=== PATIENT | female | born 1965 | race Caucasian/White ===

== ENCOUNTER 2016-10-24 14:03 | Inpatient (IN) | payer BC ==
[2016-10-24] MEDS ORDERED: IPRATROPIUM/ALBUTEROL 0.5-2.5 MG/3 ML AMPUL NEB ONE ×2 (14:13→15:07)
[2016-10-24] MEDS ORDERED: METHYLPREDNISOLONE INJ 125 MG/2 ML SDV IV ONE (14:13)
--- NOTE | 2016-10-24 14:13 | ER Document Report ---
ED Medical Screen (RME) - General Stated Complaint: DIFFICULTY BREATHING Notes: patient is a 51 year old female with PMH COPD with difficulty breathing that started yesterday. nebulizer treatments- hour ago albuterol does not wear 02 at home. dyspnic, able to talk in sentences but easily SOB tobacco use I have greeted and performed a rapid initial assessment of this patient. A comprehensive ED assessment and evaluation of the patient, analysis of test results and completion of the medical decision making process will be conducted by additional ED providers. - Related Data Allergies/Adverse Reactions: Penicillins Allergy (Intermediate, Verified 11/08/13 00:18) aspirin [Aspirin] Allergy (Verified 11/07/13 19:14) codeine [Codeine] Allergy (Verified 11/07/13 19:14) Past Medical History Pulmonary Medical History: Reports: Hx Asthma Psychiatric Medical History: Denies: Hx Depression - Immunizations Hx Diphtheria, Pertussis, Tetanus Vaccination: No Physical Exam - Vital signs Vitals: Temp Pulse Resp BP Pulse Ox 98.1 F 91 26 H 182/95 H 92 10/24/16 14:10/24/16 14:10/24/16 14:10/24/16 14:10/24/16 14:09 Course - Vital Signs Vital signs: Temp Pulse Resp BP Pulse Ox 98.1 F 91 26 H 182/95 H 92 10/24/16 14:10/24/16 14:10/24/16 14:10/24/16 14:10/24/16 14:09
[2016-10-24] MEDS: ALBUTEROL SULFATE 0.083% NEB 2.5 MG/3 ML AMPUL NEB SCH ×2 (14:46→14:56)
--- NOTE | 2016-10-24 14:54 | ER Document Report ---
ED Respiratory Problem - General Time seen by provider: 14:45 Mode of Arrival: Ambulatory Information source: Patient TRAVEL OUTSIDE OF THE [place] IN LAST 30 DAYS: No - HPI Patient complains to provider of: Asthma - In the department, Cough, Short of breath Onset: Other - Radioactively and 30 see HPI note Context: Hx asthma Associated symptoms: Cough, Difficulty breathing, Short of breath - Radioactively and 30. To <PROSPER BECKWITH - Last Filed: 10/24/16 17:09> <LISA RAMIREZ - Last Filed: 10/24/16 22:48> - General Chief Complaint: Breathing Difficulty Stated Complaint: DIFFICULTY BREATHING Notes: Patient is a 51-year-old female presenting from her spouse complaint difficulty breathing. Patient was 92% oxygen saturation on room air on arrival. Patient states that her symptoms started yesterday when she started sneezing and coughing. Patient states her symptoms escalated from then. Patient has a history of asthma. Patient states that the nebulizer treatments are helping with her difficulty breathing. Patient did not receive a flu or pneumonia shot this year. Patient states she was recently on steroids prior bursitis in her arm about 1 week ago. Patient is a smoker but is trying to quit, she has not smoked for 3 days. Patient is allergic to penicillin, aspirin, and codeine. ( PROSPER BECKWITH) - Related Data Allergies/Adverse Reactions: Penicillins Allergy (Intermediate, Verified 11/08/13 00:18) aspirin [Aspirin] Allergy (Verified 11/07/13 19:14) codeine [Codeine] Allergy (Verified 11/07/13 19:14) Home Medications: Current Home Medications Albuterol Sulfate [Proair HFA] 1 puff IH Q4HP PRN 10/24/16 [History] Albuterol Sulfate [Ventolin 0.083% Neb 2.5 mg/3 mL Ampul] 2.5 mg NEB RTQ6HP PRN 10/24/16 [History] Past Medical History - General Information source: Patient - Social History Smoking Status: Current Every Day Smoker Family History: None Patient has suicidal ideation: No Patient has homicidal ideation: No Pulmonary Medical History: Reports: Hx Asthma Musculoskeltal Medical History: Reports Other - broken ankle Surgical Hx: Negative - Immunizations Hx Diphtheria, Pertussis, Tetanus Vaccination: No <PROSPER BECKWITH - Last Filed: 10/24/16 17:09> Review of Systems - Review of Systems Constitutional: No symptoms reported EENT: No symptoms reported Cardiovascular: No symptoms reported Respiratory: See HPI, Cough, Short of breath, Wheezing Gastrointestinal: No symptoms reported Genitourinary: No symptoms reported Female Genitourinary: No symptoms reported Musculoskeletal: No symptoms reported Skin: No symptoms reported Hematologic/Lymphatic: No symptoms reported Neurological/Psychological: No symptoms reported -: Yes All other systems reviewed and negative <PROSPER BECKWITH - Last Filed: 10/24/16 17:09> Physical Exam - Vital signs Interpretation: Hypoxic - upon arrival - General General appearance: Appears well, Alert In distress: Mild - HEENT Head: Normocephalic, Atraumatic Eyes: Normal Pupils: PERRL Mucous membranes: Moist - Respiratory Respiratory status: No respiratory distress Chest status: Nontender Breath sounds: Decreased air movement - throughout, Wheezing Chest palpation: Normal - Cardiovascular Rhythm: Regular Heart sounds: Normal auscultation Murmur: No - Abdominal Inspection: Normal Distension: No distension Bowel sounds: Normal Tenderness: Nontender Organomegaly: No organomegaly - Back Back: Normal, Nontender - Extremities General upper extremity: Normal inspection, Normal ROM, Normal strength General lower extremity: Normal inspection, Normal ROM, Normal strength - Neurological Neuro grossly intact: Yes Cognition: Normal Orientation: AAOx4 Denis Coma Scale Eye Opening: Spontaneous Oxford Coma Scale Verbal: Oriented Oxford Coma Scale Motor: Obeys Commands Oxford Coma Scale Total: 15 Speech: Normal - Psychological Associated symptoms: Normal affect, Normal mood - Skin Skin Temperature: Warm Skin Moisture: Dry <PROSPER BECKWITH - Last Filed: 10/24/16 17:09> Course - Laboratory Result Diagrams: 10/24/16 14:40 10/24/16 14:40 - Consults Dr. Kelly Time consulted: 16:55 Consulted provider: will see as inpatient <ALEXISBENNYNENAPROSPER - Last Filed: 10/24/16 17:09> - Laboratory Result Diagrams: 10/24/16 14:40 10/24/16 14:40 - Diagnostic Test Radiology reviewed: Reports reviewed <LISA RAMIREZ - Last Filed: 10/24/16 22:48> - Re-evaluation Re-evalutation: 10/24/16 Patient presents with respiratory distress. After nebulizer treatments, Solu- Medrol, magnesium, the patient is still hypoxic and has wheezing on exam. Chest x-ray with possible pneumonia although the patient has been afebrile. No recent hospital admissions. Patient does not have oxygen at home. Patient will be admitted for COPD exacerbation with hypoxia. Agrees with this plan. Stable for admission. (LISA RAMIREZ) - Vital Signs Vital signs: Temp Pulse Resp BP Pulse Ox 98.1 F 91 20 115/63 96 10/24/16 14:09 10/24/16 14:09 10/24/16 22:01 10/24/16 22:01 10/24/16 22:37 (PROSPER BECKWITH) (LISA RAMIREZ) - Laboratory Laboratory results interpreted by me: 10/24/16 10/24/16 10/24/16 14:40 14:40 15:05 RDW 14.2 H Potassium 3.3 L Urine Blood MODERATE H (LISA RAMIREZ) - Consults Dr. Kelly Reason for consultation: 10/24/16 16:[address] Kelly for possible admission, he will call back. 10/24/16 17:[address] Kelly, he will admit the patient. (PROSPER BECKWITH) Critical Care Note - Critical Care Note Total time excluding time spent on procedures (mins): 45 - evaluation and management of respiratory distress multiple re-evaluations initiation of hypoxia management, COPD exacerbation management, Jovani and of admission, counseling of patient <LISA RAMIREZ - Last Filed: 10/24/16 22:48> Discharge <PROSPER BECKWITH - Last Filed: 10/24/16 17:09> - Discharge Admitting Provider: Meliza Kelly Unit Admitted: [facility] <LISA RAMIREZ - Last Filed: 10/24/16 22:48> - Discharge Clinical Impression: COPD exacerbation, Respiratory distress, Hypoxia Condition: Stable Disposition: ADMITTED INPATIENT Scribe Attestation: 10/24/16 22:48 I personally performed the services described in the documentation, reviewed and edited the documentation which was dictated to the scribe in my presence, and it accurately records my words and actions. (LISA RAMIREZ) Scribe Documentation - Scribe Written by Scribe:: Prosper Beckwith 10/24/16 15:33 acting as scribe for :: Solo <PROSPER BECKWITH - Last Filed: 10/24/16 17:09>
[2016-10-24] MEDS: MAGNESIUM SULFATE/D5W 100 ML IV SCH ×2 (14:56→16:32)
[2016-10-24 15:04] LABS: ABSOLUTE EOSINOPHILS # (AUTO) 0.1 10^3/uL (0.0-0.6); ABSOLUTE LYMPHOCYTES (AUTO) 1.7 10^3/uL (0.5-4.7); ABSOLUTE MONOCYTES (AUTO) 0.7 10^3/uL (0.1-1.4); ABSOLUTE NEUT (AUTO) 4.2 10^3/uL (1.7-8.2); BASOPHILS % (AUTO) 0.4 % (0-2); EOSINOPHILS % (AUTO) 0.8 % (0-6); HEMATOCRIT 43.3 % (36.0-47.0); HEMOGLOBIN 14.7 g/dL (12.0-15.5); HGB HCT DIFFERENCE 0.8; LYMPHOCYTES % (AUTO) 25.8 % (13-45); MEAN CORPUSCULAR HEMOGLOBIN 30.3 pg (27.0-33.4); MEAN CORPUSCULAR VOLUME 89 fl (80-97); MONOCYTES % (AUTO) 10.4 % (3-13); RED BLOOD COUNT 4.87 10^6/uL (3.72-5.28); RED CELL DISTRIBUTION WIDTH 14.2 % (11.5-14.0); SEGMENTED NEUTROPHILS % (AUTO) 62.6 % (42-78); WHITE BLOOD COUNT 6.8 10^3/uL (4.0-10.5)
[2016-10-24 15:05] LABS: VENOUS BLOOD BASE EXCESS 3.5 mmol/L; VENOUS BLOOD HCO3 29.5 mmol/L (20-32); VENOUS BLOOD PCO2 49.4 mmHg (35-63); VENOUS BLOOD PH 7.39 (7.30-7.42)
[2016-10-24 15:19] LABS: ALANINE AMINOTRANSFERASE 22 U/L (9-52); ALBUMIN 4.9 g/dL (3.5-5.0); ALKALINE PHOSPHATASE 79 U/L (38-126); ANION GAP 14 (5-19); ASPARTATE AMINO TRANSFERASE 22 U/L (14-36); BILIRUBIN,TOTAL 0.5 mg/dL (0.2-1.3); BLOOD UREA NITROGEN 11 mg/dL (7-20); CALCIUM 9.7 mg/dL (8.4-10.2); CARBON DIOXIDE 30 mmol/L (22-30); CHLORIDE 99 mmol/L (98-107); CREATININE RESULT 0.69 mg/dL (0.52-1.25); GLUCOSE 92 mg/dL (75-110); POTASSIUM 3.3 mmol/L (3.6-5.0); SODIUM 143.3 mmol/L (137-145); TOTAL PROTEIN 8.1 g/dL (6.3-8.2)
[2016-10-24] MEDS ORDERED: LEVOFLOXACIN 750 MG/D5W RTU 150 ML IV ONE (15:40)
[2016-10-24 15:52] LABS: APPEARANCE,URINE CLEAR; BILIRUBIN,URINE NEGATIVE (NEGATIVE); GLUCOSE, URINE NEGATIVE (NEGATIVE); KETONES,URINE NEGATIVE (NEGATIVE); LEUKOCYTE ESTERASE,URINE NEGATIVE (NEGATIVE); NITRITE,URINE NEGATIVE (NEGATIVE); PROTEIN,URINE NEGATIVE (NEGATIVE); UROBILINOGEN,URINE NEGATIVE mg/dL (<2.0)
[2016-10-24] MEDS ORDERED: ONDANSETRON HCL INJ/PF 4 MG/2 ML SDV IV PRN (18:05)
[2016-10-24] MEDS ORDERED: NORMAL SALINE 1000 ML 1,000 ML IV PRN (18:05)
[2016-10-24] MEDS ORDERED: ACETAMINOPHEN 325 MG TABLET PO PRN (18:05)
[2016-10-24] MEDS ORDERED: LEVALBUTEROL HCL NEB 1.25 MG/3 ML AMPUL NEB PRN (18:05)
[2016-10-24] MEDS ORDERED: HYDRALAZINE HCL INJ/PF 20 MG/1 ML SDV IV PRN (18:41)
--- NOTE | 2016-10-24 18:41 | PDOC H&P ---
History of Present Illness Admission Date/PCP: 10/24/16 17:20 Patient complains of: Shortness of breath History of Present Illness: JUVE RUSSELL is a 51 year old female, with history of COPD, chronic smoker apparently went into a gathering yesterday where she started inhaling perfumes and smoke started to develop shortness of breath, with associated wheezing and coughing. There is no chills or fever. There is no sinus congestion however she has a lot of sneezing and postnasal drip yesterday. Denies any pleuritic chest pain. She had some chest tightness when she was having wheezing. No PND or orthopnea. No palpitation. No nausea or vomiting associated. No diaphoresis as well. The patient went to the emergency room. Chest x-ray shows atelectasis or infiltrate. WBC however is normal. The patient was started on nebulizers and antibiotics and was then referred for admission. Patient stated that she quit smoking about 3-4 days ago. Past Medical History Pulmonary Medical History: Reports: Asthma, Chronic Obstructive Pulmonary Disease (COPD) Endocrine Medical History: Reports: Other - Thyroid nodule Musculoskeltal Medical History: Reports: Other - broken ankle, rhabdomyolysis Psychiatric Medical History: Denies: Depression Past Surgical History Past Surgical History: Reports: None - Denies any surgery recently. Social History Information Source: Patient Smoking Status: Current Every Day Smoker Frequency of Alcohol Use: Occasional Hx Recreational Drug Use: No Drugs: None Hx Prescription Drug Abuse: No Family History Family History: CVA, Other - Dementia, asthma Parental Family History Reviewed: Yes Children Family History Reviewed: Yes Sibling(s) Family History Reviewed.: Yes Medication/Allergy Home Medications: Albuterol Sulfate [Proair HFA] 1 puff IH Q4HP PRN 10/24/16 Albuterol Sulfate [Ventolin 0.083% Neb 2.5 mg/3 mL Ampul] 2.5 mg NEB RTQ6HP PRN 10/24/16 Allergies/Adverse Reactions: Penicillins Allergy (Intermediate, Verified 11/08/13 00:18) aspirin [Aspirin] Allergy (Verified 11/07/13 19:14) codeine [Codeine] Allergy (Verified 11/07/13 19:14) Review of Systems Constitutional: ABSENT: chills, fever(s), headache(s), night sweats, weakness, weight gain, weight loss Eyes: ABSENT: visual disturbances Ears: ABSENT: hearing changes Nose, Mouth, and Throat: ABSENT: mouth pain, sore throat, vertigo Cardiovascular: PRESENT: dyspnea on exertion - For the past 2 days. ABSENT: chest pain, edema, orthropnea, palpitations Respiratory: PRESENT: cough, dyspnea, sputum - Scanty. ABSENT: hemoptysis Gastrointestinal: ABSENT: abdominal pain, coffee ground emesis, constipation, diarrhea, hematemesis, hematochezia, melena, nausea, vomiting Genitourinary: ABSENT: difficulty urinating, dysuria, hematuria Musculoskeletal: ABSENT: joint swelling Integumentary: ABSENT: pruritus, rash, wounds Neurological: ABSENT: abnormal gait, abnormal speech, confusion, dizziness, focal weakness, syncope Psychiatric: ABSENT: anxiety, depression, homidical ideation, suicidal ideation Endocrine: ABSENT: cold intolerance, heat intolerance, polydipsia, polyphagia, polyuria Hematologic/Lymphatic: ABSENT: easy bleeding, easy bruising Physical Exam Vital Signs: Temp Pulse Resp BP Pulse Ox 98.1 F 91 23 H 159/101 H 95 10/24/16 14:09 10/24/16 14:09 10/24/16 15:01 10/24/16 15:01 10/24/16 15:01 General appearance: PRESENT: cooperative, mild distress Head exam: PRESENT: atraumatic, normocephalic Eye exam: PRESENT: conjunctiva pink, EOMI, PERRLA. ABSENT: scleral icterus Ear exam: PRESENT: normal external ear exam. ABSENT: drainage Mouth exam: PRESENT: moist, neck supple, tongue midline Throat exam: ABSENT: post pharyngeal erythema, tonsillar erythema, tonsillar exudate Neck exam: ABSENT: carotid bruit, JVD, lymphadenopathy, thyromegaly Respiratory exam: PRESENT: decreased breath sounds, wheezes - Mild posteriorly bilaterally. ABSENT: rales, rhonchi Cardiovascular exam: PRESENT: RRR, +S1, +S2. ABSENT: diastolic murmur, gallop, rubs, systolic murmur Pulses: PRESENT: normal dorsalis pedis pul Vascular exam: PRESENT: normal capillary refill GI/Abdominal exam: PRESENT: normal bowel sounds, soft. ABSENT: distended, guarding, mass, organolmegaly, rebound, tenderness Rectal exam: PRESENT: deferred Extremities exam: PRESENT: full ROM. ABSENT: calf tenderness, clubbing, pedal edema Neurological exam: PRESENT: alert, awake, oriented to person, oriented to place , oriented to time, oriented to situation Psychiatric exam: PRESENT: appropriate affect, normal mood. ABSENT: homicidal ideation, suicidal ideation Skin exam: PRESENT: dry, intact, warm. ABSENT: cyanosis, rash Results Impressions: Chest X-Ray 10/24/16 14:13 IMPRESSION: Minimal infiltrate in the right base either representing atelectasis or pneumonia. Assessment & Plan - Diagnosis (1) COPD exacerbation Is this a current diagnosis for this admission?: Yes (2) Hypokalemia Is this a current diagnosis for this admission?: Yes (3) Elevated blood pressure reading Is this a current diagnosis for this admission?: Yes (4) History of thyroid nodule Is this a current diagnosis for this admission?: Yes (5) Tobacco abuse Is this a current diagnosis for this admission?: Yes - Time Time Spent: 50 to 70 Minutes Within: within 72 hours - Inpatient Certification Based on my medical assessment, after consideration of the patient's comorbidities, presenting symptoms, or acuity I expect that the services needed warrant INPATIENT care.: Yes I certify that my determination is in accordance with my understanding of Medicare's requirements for reasonable and necessary INPATIENT services [42 CFR 412.3e].: Yes Medical Necessity: Need Close Monitoring Due to Risk of Patient Decompensation, Need For Continuous Telemetry Monitoring, Need for Nebulizer Therapy and Monitoring of Response, Risk of Complication if Not Cared For in Hospital Post Hospital Care: D/C [employer] Analyst Documentation - Plan Summary Plan Summary: The patient will be admitted to telemetry. We will begin intravenous steroids and [id number] nebulizers. In the meantime I will put the patient on oral antibiotics. DVT prophylaxis with Lovenox will be placed. Supplemental oxygen will be given. We will culture the patient's sputum. In the meantime, we will monitor blood pressure and gave as needed hydralazine for systolic blood pressure greater than 180. We will check thyroid panel. May need a thyroid ultrasound follow-up for thyroid nodule on an outpatient basis. Further testing depends on initial evaluation as outlined above.
--- NOTE | 2016-10-24 19:13 | EKG REPORT ---
SEVERITY:- NORMAL ECG - SINUS RHYTHM : Confirmed by: Terrell Coughlin MD 24-Oct-2016 19:12:25
[2016-10-24] MEDS ORDERED: POTASSIUM CHLORIDE 10 MEQ TABLET.SA PO ONE (19:15)
[2016-10-24 19:28] LABS: FREE T3 3.29 pg/mL (2.77-5.27)
[2016-10-24] MEDS ORDERED: ENOXAPARIN SODIUM INJ 40 MG/0.4 ML DISP.SYRIN SUBCUT ONE (19:30)
[2016-10-24 19:42] LABS: THYROID STIMULATING HORMONE 2.75 uIU/mL (0.47-4.68)
[2016-10-24] MEDS: IPRATROPIUM BROMIDE 0.02% NEB 0.5 MG/2.5 ML AMPUL NEB SCH (20:27)
[2016-10-24] MEDS: LEVALBUTEROL HCL NEB 1.25 MG/3 ML AMPUL NEB SCH (20:27)
[2016-10-25] MEDS: IPRATROPIUM BROMIDE 0.02% NEB 0.5 MG/2.5 ML AMPUL NEB SCH ×6 (00:39→19:54)
[2016-10-25] MEDS: LEVALBUTEROL HCL NEB 1.25 MG/3 ML AMPUL NEB SCH ×6 (00:39→19:54)
[2016-10-25 05:42] LABS: ANION GAP 14 (5-19); BLOOD UREA NITROGEN 11 mg/dL (7-20); CALCIUM 9.4 mg/dL (8.4-10.2); CARBON DIOXIDE 24 mmol/L (22-30); CHLORIDE 103 mmol/L (98-107); CREATININE RESULT 0.52 mg/dL (0.52-1.25); GLUCOSE 161 mg/dL (75-110); POTASSIUM 3.7 mmol/L (3.6-5.0); SODIUM 140.5 mmol/L (137-145)
[2016-10-25] MEDS: LANSOPRAZOLE 30 MG TAB.RAP.DR PO SCH (05:44)
[2016-10-25] MEDS: ENOXAPARIN SODIUM INJ 40 MG/0.4 ML DISP.SYRIN SUBCUT SCH (09:17)
[2016-10-25] MEDS: LEVOFLOXACIN 500 MG TABLET PO SCH (09:18)
[2016-10-25] MEDS: DOCUSATE SODIUM 100 MG CAPSULE PO SCH ×2 (09:18→17:06)
--- NOTE | 2016-10-25 14:31 | PDOC PROGRESS REPORT ---
Subjective Progress Note for:: 10/25/16 Subjective:: Patient is feeling better today. Shortness of breath is better. Coughing is less. No nausea or vomiting, chills nor fever. No diarrhea. No chest pain at all. Able to ambulate better. Physical Exam Vital Signs: Temp Pulse Resp BP Pulse Ox 98.1 F 92 18 147/86 H 92 10/25/16 11:28 10/25/16 14:00 10/25/16 12:31 10/25/16 11:28 10/25/16 12:31 Intake & Output 10/24/16 10/25/16 10/26/16 06:59 06:59 06:59 Intake Total 350 Balance 350 Weight 65.2 kg General appearance: PRESENT: no acute distress, cooperative, obese Head exam: PRESENT: normocephalic Eye exam: PRESENT: EOMI Mouth exam: PRESENT: moist, neck supple Neck exam: ABSENT: JVD Respiratory exam: PRESENT: decreased breath sounds, rhonchi - few bilateral Cardiovascular exam: PRESENT: RRR. ABSENT: gallop GI/Abdominal exam: PRESENT: soft. ABSENT: distended, tenderness Extremities exam: ABSENT: pedal edema Neurological exam: PRESENT: alert, awake, oriented to situation Skin exam: PRESENT: dry, warm. ABSENT: cyanosis Results Laboratory Results: 10/25/16 04:27 10/25/16 04:27 Sodium 140.5 Potassium 3.7 Chloride 103 Carbon Dioxide 24 Anion Gap 14 BUN 11 Creatinine 0.52 Est GFR ( Amer) > 60 Est GFR (Non-Af Amer) > 60 Glucose 161 H Calcium 9.4 Impressions: Chest X-Ray 10/24/16 14:13 IMPRESSION: Minimal infiltrate in the right base either representing atelectasis or pneumonia. Assessment & Plan - Diagnosis (1) COPD exacerbation Is this a current diagnosis for this admission?: Yes (2) Hypokalemia Is this a current diagnosis for this admission?: Yes (3) Elevated blood pressure reading Is this a current diagnosis for this admission?: Yes (4) History of thyroid nodule Is this a current diagnosis for this admission?: Yes (5) Tobacco abuse Is this a current diagnosis for this admission?: Yes - Time Time Spent with patient: 15-24 minutes - Plan Summary Plan Summary: Continue current medications. Patient is doing well. Discontinue intravenous fluids. Increase activity today. Continue supportive care.
[2016-10-25] MEDS ORDERED: SODIUM CHLORIDE NASAL SPRAY 44 ML ONE (19:09)
[2016-10-25] MEDS: METHYLPREDNISOLONE INJ 125 MG/2 ML SDV IV SCH (22:42)
[2016-10-25] MEDS: SODIUM CHLORIDE NASAL SPRAY 44 ML NASL SCH (22:42)
[2016-10-26] MEDS: LEVALBUTEROL HCL NEB 1.25 MG/3 ML AMPUL NEB SCH ×5 (00:15→16:25)
[2016-10-26] MEDS: IPRATROPIUM BROMIDE 0.02% NEB 0.5 MG/2.5 ML AMPUL NEB SCH ×5 (00:16→16:24)
[2016-10-26] MEDS: METHYLPREDNISOLONE INJ 125 MG/2 ML SDV IV SCH ×3 (04:01→14:38)
[2016-10-26] MEDS: LANSOPRAZOLE 30 MG TAB.RAP.DR PO SCH (05:49)
[2016-10-26] MEDS: SODIUM CHLORIDE NASAL SPRAY 44 ML NASL SCH ×3 (08:34→17:20)
[2016-10-26] MEDS: ENOXAPARIN SODIUM INJ 40 MG/0.4 ML DISP.SYRIN SUBCUT SCH (08:44)
[2016-10-26] MEDS: DOCUSATE SODIUM 100 MG CAPSULE PO SCH ×2 (10:21→17:20)
[2016-10-26] MEDS: LEVOFLOXACIN 500 MG TABLET PO SCH (10:21)
--- NOTE | 2016-10-26 16:53 | PDOC DISCHARGE SUMMARY ---
General - Admit/Disc Date/PCP Admission Date/Primary Care Provider: 10/24/16 18:05 Discharge Date: 10/26/16 - Discharge Diagnosis (1) COPD exacerbation Is this a current diagnosis for this admission?: Yes (2) Hypokalemia Is this a current diagnosis for this admission?: Yes (3) Elevated blood pressure reading Is this a current diagnosis for this admission?: Yes (4) History of thyroid nodule Is this a current diagnosis for this admission?: Yes (5) Tobacco abuse Is this a current diagnosis for this admission?: Yes - Additional Information Resuscitation Status: Full Code Discharge Diet: Regular Discharge Activity: Activity As Tolerated, Balance Activity w/Rest, Slowly Increase Activity Home Medications: Albuterol Sulfate [Proair HFA] 1 puff IH Q4HP PRN 10/24/16 Albuterol Sulfate [Ventolin 0.083% Neb 2.5 mg/3 mL Ampul] 2.5 mg NEB Q4H PRN #0 10/26/16 Fluticasone/Salmeterol [Advair 250-50 Diskus 28 dose] 1 inh IH Q12H #1 inhaler 10/26/16 Ipratropium Dime Box [Atrovent 0.02% Neb 0.5 mg/2.5 ml Ampul] 0.5 mg NEB RTQ4 PRN #60 vial.neb 10/26/16 Levofloxacin [Levaquin 500 mg Tablet] 500 mg PO DAILY #8 tablet 10/26/16 Prednisone [Sterapred Ds] 1 pkg PO ASDIR PRN 12 Days 10/26/16 Tiotropium Dime Box [Spiriva Handihaler 5 Cap/Kit (18 Mcg/Cap)] 1 cap IH DAILY # 6 capsule 10/26/16 Additional Information: 1. Follow-up final sputum culture result as outpatient with primary care physician 2. Stop smoking 3. Thyroid ultrasound as outpatient with primary care physician for follow-up of thyroid nodule. 4. Return to the emergency room if symptoms recur or worsens. History of Present Illness Patient complains of: Shortness of breath History of Present Illness: JUVE RUSSELL is a 51 year old female, with history of COPD, chronic smoker apparently went into a gathering yesterday where she started inhaling perfumes and smoke started to develop shortness of breath, with associated wheezing and coughing. There is no chills or fever. There is no sinus congestion however she has a lot of sneezing and postnasal drip yesterday. Denies any pleuritic chest pain. She had some chest tightness when she was having wheezing. No PND or orthopnea. No palpitation. No nausea or vomiting associated. No diaphoresis as well. The patient went to the emergency room. Chest x-ray shows atelectasis or infiltrate. WBC however is normal. The patient was started on nebulizers and antibiotics and was then referred for admission. Patient stated that she quit smoking about 3-4 days ago. Hospital Course Hospital Course: The patient was admitted to telemetry. The patient was began on intravenous steroids and [id number] nebulizers. DVT prophylaxis with Lovenox was placed. Supplemental oxygen was given as well. Sputum was cultured and antibiotic was started already. Today it sputum culture is pending. With above treatment the patient's shortness of breath improved and the wheezing resolved. Patient was advised about stopping smoking. Patient was likewise advised to follow up final results of sputum culture as outpatient with primary care physician. Patient wanted to go home and continue treatment on an outpatient basis. She was advised to follow-up with a calciminer as well. Physical Exam Vital Signs: Temp Pulse Resp BP Pulse Ox 97.9 F 98 18 153/82 H 94 10/26/16 15:56 10/26/16 15:56 10/26/16 15:56 10/26/16 15:56 10/26/16 15:56 Intake & Output 10/25/16 10/26/16 10/27/16 06:59 06:59 06:59 Intake Total 350 3229 Balance 350 3229 Weight 65.2 kg 65.2 kg General appearance: PRESENT: no acute distress, cooperative, obese Head exam: PRESENT: normocephalic Eye exam: PRESENT: EOMI, PERRLA Mouth exam: PRESENT: moist, neck supple Neck exam: ABSENT: JVD Respiratory exam: PRESENT: rhonchi - Minimal bilateral, unlabored. ABSENT: retraction, wheezes Cardiovascular exam: PRESENT: RRR. ABSENT: gallop GI/Abdominal exam: PRESENT: normal bowel sounds, soft. ABSENT: distended, tenderness Extremities exam: PRESENT: other - Trace pretibial edema Neurological exam: PRESENT: alert, awake, oriented to person, oriented to place , oriented to time, oriented to situation Skin exam: PRESENT: dry, warm. ABSENT: cyanosis Results Laboratory Results: 10/25/16 04:27 Impressions: Chest X-Ray 10/24/16 14:13 IMPRESSION: Minimal infiltrate in the right base either representing atelectasis or pneumonia. Qualifiers PATEINT BEING DISCHARGED WITH ANY OF THE FOLLOWING DIAGNOSIS?: No Plan Discharge Plan: Follow-up with primary care physician in one week. Follow-up with pulmonary( Dr. Mary) in 2 weeks. Time Spent: Less than 30 Minutes
[2016-10-26 17:18] VITALS: BP 139/84
== END 2016-10-26 18:43 | disposition home or self-care (01) | DRG 192 ==
LOC: ER 14:03 → UNDOADMIN 17:20 → EH 17:20 → 4N 23:28
PROC: 3E0F73Z Introduction of Anti-inflammatory into Respiratory Tract, Via Natural or Artificial Opening (ICD-10-PCS; principal; 2016-10-24)
DX: J44.1 Chronic obstructive pulmonary disease with (acute) exacerbation (principal); E87.6 Hypokalemia; J45.909 Unspecified asthma, uncomplicated; F17.210 Nicotine dependence, cigarettes, uncomplicated; R03.0 Elevated blood-pressure reading, without diagnosis of hypertension; Z79.899 Other long term (current) drug therapy; Z88.6 Allergy status to analgesic agent; Z88.0 Allergy status to penicillin; Z82.3 Family history of stroke; Z82.5 Family history of asthma and other chronic lower respiratory diseases; Z81.8 Family history of other mental and behavioral disorders
CPT/HCPCS: 36415; 71010; 80048; 80053; 81001; 82803; 84439; 84443; 84481; 85025; 87070; 87205; 87804; 93005; 93010; 94640; 96365; 96366; 96368; 96375; 99291; J1650; J1956; J2930; J3475; J3490; J7620